=== PATIENT | male | born 1930 | race African-American/Black ===

== ENCOUNTER 2017-06-25 16:43 | Emergency (ER) | payer OTHER ==
[~2017-06-25] VITALS: Ht 185.4 cm; Wt 98.0 kg
[2017-06-25] MEDS ORDERED: METHOCARBAMOL 500MG TABLET PO ONE (17:15)
[2017-06-25] MEDS ORDERED: KETOROLAC 60MG/2ML VIAL IM ONE (17:15)
[2017-06-25] MEDS ORDERED: ACETAMINOPHEN WITH CODEINE 300/30MG TABLET PO ONE ×2 (17:15→21:15)
[2017-06-25 21:58] VITALS: BP 145/75
== END 2017-06-25 22:21 | disposition home or self-care (01) ==
LOC: ER 16:43
DX: M54.41 Lumbago with sciatica, right side (principal); E11.9 Type 2 diabetes mellitus without complications; I10 Essential (primary) hypertension
CPT/HCPCS: 96372; 99284; J1885